=== PATIENT | male | born 1950 ===

== ENCOUNTER 2024-07-13 10:10 | Outpatient (NON) | payer MEDICARE, SELFPAY ==
[2024-07-13 10:59] LABS: INR 2.2; Prothrombin Time 22.5 Seconds (9.50-12.1)
[2024-07-13 12:33] LABS: Iron 42 ug/dL (65-175); Percent Iron Saturation 13 % (12-57); Vitamin B12 206 pg/mL (193-986)
== END 2024-07-13 10:11 | disposition home or self-care (01) ==
LOC: CHSLAB 10:15
PROVIDERS: Visit Provider Family Medicine
DX: I48.91 Unspecified atrial fibrillation (principal)
CPT/HCPCS: 36415; 82607; 82746; 83540; 83550; 85610